=== PATIENT | female | born 1935 | race American Indian/Alaskan Native ===

== ENCOUNTER 2016-09-16 11:27 | Emergency (ER) | payer MEDICARE ==
[2016-09-16 11:42] VITALS: BP 171/81
[2016-09-16] MEDS ORDERED: BSS 1 DROPS, TETRACAINE 0.5% 1 DROPS, FUL-GLO 1 MG OU ONE (12:17)
[2016-09-16] MEDS ORDERED: TETRACAINE 0.5% ONE (12:19)
[2016-09-16] MEDS ORDERED: FUL-GLO OP ONE (12:19)
[2016-09-16] MEDS ORDERED: BSS ONE (12:19)
--- NOTE | 2016-09-16 12:34 | Emergency Department Report ---
ED Eye Problem HPI - General Chief complaint: Eye Problems Stated complaint: LT EYE PAIN/REDNESS Time Seen by Provider: 09/16/16 12:10 Source: patient Mode of arrival: Ambulatory Limitations: No Limitations - History of Present Illness Initial comments: The family member reports patient accidentally used a prescriptive eye drop indicated for the left eye into her right eye two days ago. The patient complains of bilateral eye redness, blurred vision and drainage. MD chief complaint: eye redness, vision change Onset/Timin -: days(s) Onset Description: gradual Location: both eyes Place: home If Injury: none Eye Symptoms: redness, itching, discharge, blurry vision Severity: moderate Severity scale (0 -10): 0 If Pain, Quality: other (none) Consistency: constant Context: history of glaucoma Associated Symptoms: none Treatments Prior to Arrival: none - Related Data Patient Tetanus UTD: Yes Home Medications Medication Instructions Recorded Confirmed Last Taken Brimonidine Tartrate [Alphagan P 1 drop OU BID 09/16/16 09/16/16 09/10/16 0.1%] Latanoprost 0.005% [Xalatan 0.005%] 1 drop OS QPM 09/16/16 09/16/16 09/15/16 Tobramycin/Dexameth 0.3-0.1% 0 drops OP DAILY 09/16/16 09/16/16 09/15/16 [Tobradex] Previous Rx's Medication Instructions Recorded Last Taken Type Acetaminophen 325 mg PO QID #10 capsule 09/16/16 Unknown Rx Polymyxin B Sulf/Trimethoprim 1 drop OU QID #5 cc 09/16/16 Unknown Rx [Polytrim Eye Drops [id number]/0.1%] Allergies Allergy/AdvReac Type Severity Reaction Status Date / Time No Known Allergies Allergy Unverified 09/16/16 11:32 ED Review of Systems ROS: Stated complaint: LT EYE PAIN/REDNESS Other details as noted in HPI Constitutional: denies: chills, diaphoresis, fever, malaise, weakness Eyes: eye discharge (right), vision change (bilateral eye). denies: eye pain ENT: denies: ear pain, throat pain, dental pain, hearing loss, epistaxis, congestion Respiratory: denies: cough, orthopnea, shortness of breath, SOB with exertion, SOB at rest, stridor, wheezing Cardiovascular: denies: chest pain, palpitations, dyspnea on exertion, orthopnea , edema, syncope, paroxysmal nocturnal dyspnea Skin: denies: rash, lesions, change in color, change in hair/nails, pruritus Neurological: denies: headache, weakness, numbness, paresthesias, confusion ED Past Medical Hx - Past Medical History Previous Medical History?: Yes Hx Hypertension: Yes Hx Arthritis: Yes Additional medical history: high cholesterol - Surgical History Past Surgical History?: Yes Additional Surgical History: eye surgery-laser surgery - Social History Smoking Status: Never Smoker Substance Use Type: Prescribed - Medications Home Medications: Home Medications Medication Instructions Recorded Confirmed Last Taken Type Acetaminophen 325 mg PO QID #10 capsule 09/16/16 Unknown Rx Brimonidine Tartrate [Alphagan P 1 drop OU BID 09/16/16 09/16/16 09/10/16 History 0.1%] Latanoprost 0.005% [Xalatan 0.005%] 1 drop OS QPM 09/16/16 09/16/16 09/15/16 History Polymyxin B Sulf/Trimethoprim 1 drop OU QID #5 cc 09/16/16 Unknown Rx [Polytrim Eye Drops [id number]/0.1%] Tobramycin/Dexameth 0.3-0.1% 0 drops OP DAILY 09/16/16 09/16/16 09/15/16 History [Tobradex] ED Physical Exam - General Limitations: No Limitations General appearance: alert, in no apparent distress - Head Head exam: Present: atraumatic, normocephalic, normal inspection - Eye Eye exam: Present: PERRL, EOMI, conjunctival injection (right). Absent: scleral icterus, nystagmus, periorbital swelling, periorbital tenderness - Expanded Eye Exam Expanded Pupils: Regular, Round: Bilateral, Reactive: Bilateral Sclera/Conjunctival: Injection: Right, Exudate: Bilateral Anterior chamber: Normal Inspection: Bilateral Posterior chamber: Deferred: Bilateral Visual acuity (R) = 20/: 200 Visual acuity (L) = 20/: 200 With correction: No - ENT ENT exam: Present: normal exam, normal orophraynx, mucous membranes moist. Absent: mucous membranes dry, TM's normal bilaterally, normal external ear exam - Neck Neck exam: Present: normal inspection, full ROM - Respiratory Respiratory exam: Present: normal lung sounds bilaterally. Absent: respiratory distress, wheezes, rales, rhonchi, stridor, chest wall tenderness, accessory muscle use, decreased breath sounds, prolonged expiratory - Cardiovascular Cardiovascular Exam: Present: regular rate, normal rhythm, normal heart sounds. Absent: systolic murmur, diastolic murmur, rubs, gallop - Neurological Exam Neurological exam: Present: alert, oriented X3, CN II-XII intact, normal gait, reflexes normal. Absent: motor sensory deficit - Skin Skin exam: Present: warm, dry, intact, normal color. Absent: rash ED Course Vital Signs 09/16/16 11:36 Temperature 98.1 F Pulse Rate 88 Respiratory 20 Rate Blood Pressure 171/81 O2 Sat by Pulse 99 Oximetry - Reevaluation(s) Reevaluation #1: 09/16/16 12:43 Visual acuity and eye kit ordered ED Medical Decision Making - Lab Data Vital Signs 09/16/16 11:36 Temperature 98.1 F Pulse Rate 88 Respiratory 20 Rate Blood Pressure 171/81 O2 Sat by Pulse 99 Oximetry - Medical Decision Making During the course of ED, visual acuity and eye kit were ordered. Patient was advised to always wash hands and read the labels of prescriptive eye medication before inserting into eyes. She was sent home with prescriptions for Tylenol and Polymyxin B Sulfa/Trim, discontinue using Tobradex and follow up with eye physician this week. The family member verbalized understanding - Differential Diagnosis Bilateral Conjunctivitis, Corneal Abrasion Critical care attestation.: If time is entered above; I have spent that time in minutes in the direct care of this critically ill patient, excluding procedure time. ED Disposition Clinical Impression: Conjunctivitis Qualifiers: Conjunctivitis type: acute Acute conjunctivitis type: bacterial Laterality: bilateral Qualified Code(s): H10.33 - Unspecified acute conjunctivitis, bilateral Disposition: - TO HOME OR SELFCARE Is pt being admited?: No Does the pt Need Aspirin: No Condition: Stable Instructions: Conjunctivitis (ED) Additional Instructions: Take medication as directed. Follow up with eye doctor next week Prescriptions: Acetaminophen 325 mg PO QID #10 capsule Polymyxin B Sulf/Trimethoprim [Polytrim Eye Drops [id number]/0.1%] 1 drop OU QID #5 cc Referrals: JAVI STRONG PA [Primary Care Provider] - 3-5 Days Time of Disposition: 12:34
== END 2016-09-16 12:43 | disposition home or self-care (01) ==
LOC: ED 11:27
DX: H10.33 Unspecified acute conjunctivitis, bilateral (principal); I10 Essential (primary) hypertension; E86.0 Dehydration
CPT/HCPCS: 99282